=== PATIENT | male | born 1980 | race Two or more races ===

== ENCOUNTER 2017-04-14 10:51 | Inpatient (IN) | payer MEDICARE, OTHER ==
[~2017-04-14] VITALS: Ht 170.2 cm; Wt 78.0 kg
--- NOTE | 2017-04-14 11:08 | NUR ---
PT BIB PA C/O R HIP PAIN ON "THE SIDE" S/P GLF YESTERDAY. PT REPORTS HE WAS ABLE TO STAND WITH ASSISTANCE. NOTED WITH EXTERNAL ROTATION OF R LEG. SKIN WARM DIAPHORETIC. RESP EVEN UNLABORED. NO OTHER COMPLAINTS. IN ER BED 09 ON MONITOR.
[2017-04-14] MEDS ORDERED: ONDANSETRON 4 MG TAB.RAPDIS ONE (11:22)
[2017-04-14] MEDS ORDERED: MORPHINE SULFATE INJ 4 MG/ML DISP.SYRIN ONE ×2 (11:22→13:10)
[2017-04-14] MEDS ORDERED: MORPHINE SULFATE INJ 2 MG/ML DISP.SYRIN SQ ONE (11:30)
[2017-04-14] MEDS ORDERED: ONDANSETRON 4 MG TAB.RAPDIS SL ONE (11:30)
--- NOTE | 2017-04-14 12:53 | NUR ---
MD NOTIFIED THAT PT REMAINS TACHY, DIAPHORETIC, HYPERTENSIVE. AWAITING ORDERS.
[2017-04-14] MEDS ORDERED: IV NS 0.9% 1,000 ML IV PRN (12:57)
[2017-04-14] MEDS ORDERED: MORPHINE SULFATE INJ 2 MG/ML DISP.SYRIN IV ONE (13:00)
[2017-04-14] MEDS ORDERED: MAG HYDROX/AL HYDROX/SIMETH 30 ML UDC PO PRN (13:00)
[2017-04-14] MEDS ORDERED: ONDANSETRON HCL/PF - ER 4 MG/2 ML VIAL IV ONE (13:00)
[2017-04-14] MEDS ORDERED: ACETAMINOPHEN 325 MG TABLET PO PRN (13:00)
[2017-04-14] MEDS ORDERED: ONDANSETRON HCL/PF 4 MG/2 ML VIAL IVP PRN (13:00)
[2017-04-14] MEDS ORDERED: ZOLPIDEM TARTRATE 5 MG TABLET PO PRN (13:00)
[2017-04-14] MEDS ORDERED: MAGNESIUM HYDROXIDE 30 ML UDC PO PRN (13:00)
[2017-04-14] MEDS ORDERED: HYDROCODONE/APAP 5/325MG 1 EACH TABLET PO PRN (13:00)
[2017-04-14] MEDS ORDERED: ONDANSETRON HCL/PF 4 MG/2 ML VIAL ONE (13:10)
[2017-04-14] MEDS ORDERED: MAGN400T6 PO (13:31)
[2017-04-14] MEDS ORDERED: RISP0.5T20 PO (13:31)
[2017-04-14] MEDS ORDERED: ZONI100C6 PO (13:31)
[2017-04-14] MEDS ORDERED: FLUD0.1T PO (13:31)
[2017-04-14] MEDS ORDERED: GABA-534 PO (13:31)
[2017-04-14] MEDS ORDERED: OMEG1CAP55 PO (13:31)
[2017-04-14] MEDS ORDERED: LEVE750T4 PO (13:31)
[2017-04-14] MEDS ORDERED: PRAV40TA3 PO (13:31)
[2017-04-14] MEDS ORDERED: SERT25TA5 PO (13:31)
[2017-04-14] MEDS ORDERED: CALC500T3 PO (13:31)
[2017-04-14] MEDS ORDERED: BACL10TA PO (13:31)
--- NOTE | 2017-04-14 13:34 | NUR ---
PT APPEARS MUCH MORE COMFORTABLE. ALL NEEDS ATTENDED TO. KEPT NPO.
--- NOTE | 2017-04-14 13:40 | NUR ---
CALLED NURSING LIQUOR GALLERY OPERATOR FOR M/S BED
[2017-04-14] MEDS ORDERED: HYDROMORPHONE 1 MG/1 ML DISP.SYRIN ONE (14:13)
--- NOTE | 2017-04-14 14:22 | NUR ---
PT REPORTS SOME PAIN; NOTED WITH CONTINUED HTN AND TACHYCARDIA. MD ORTIZ NOTIFIED; ORDER RECEIVED AND ADMINISTERED.
[2017-04-14] MEDS ORDERED: HYDROMORPHONE 1 MG/1 ML DISP.SYRIN IV ONE (14:30)
--- NOTE | 2017-04-14 14:48 | NUR ---
REPORT GIVEN TO CARLOS OCHOA FOR ADMISSION
--- NOTE | 2017-04-14 15:01 | NUR ---
NOTIFIED DR ORTIZ OF HR AND BP WHICH REMAIN ELEVATED. PER DR ORTIZ, CONTACT DR LEYVA, ADMITTING MD. SPOKE WITH DR LEYVA ON PHONE, RECEIVED ORDER FOR METOPROLOL 25MG BID, FIRST DOSE NOW. VERIFIED PT CAN STILL GO TO [facility]. REPORT UPDATED TO CARLOS OCHOA.
--- NOTE | 2017-04-14 15:09 | NUR ---
SPOKE WITH PHARMACY REGARDING "MILK ALLERGY" AND LOPRESSOR. PT REPORTS HE DOES NOT HAVE AN ALLERGY BUT IS LACTOSE INTOLERANT AND GETS AN UPSET STOMACH. ENDORSED TO CARLOS OCHOA TO F/U WITH ADMITTING MD.
[2017-04-14] MEDS ORDERED: METOPROLOL TARTRATE 25 MG TABLET ONE (15:10)
[2017-04-14] MEDS: METOPROLOL TARTRATE 25 MG TABLET PO SCH ×2 (15:15→20:52)
[2017-04-14 15:30] VITALS: BP 137/42
--- NOTE | 2017-04-14 15:30 | NUR ---
[facility] campus recruiting internship notes Admitted a 37 years old male patient via gurney accompanied by ER nurse. Patient is alert and oriented x 4, verbally responsive and able to make needs known. Informed Dr. Johnson and made aware for admission orders and diet. IV intact and patent. Skin assessment done and skin is intact. No complaint of pain or discomfort at this time. Vital signs checked and recorded. On room air and tolerated well. Will continue to monitor accordingly.
--- NOTE | 2017-04-14 15:34 | NUR ---
PT TRANSPORTED TO [facility] IN STABLE CONDITION. NAD NOTED. DENIES PAIN. NO S/SX ALLERGIC OR ADVERSE REACTION NOTED.
[2017-04-14 17:59] LABS: BASOPHILS % (AUTO) 0.2 % (0.0-2.0); EOSINOPHILS # (AUTO) 0.1 /CMM (0.0-0.7); EOSINOPHILS % (AUTO) 0.6 % (0.0-6.0); HEMATOCRIT 51 % (39-51); HEMOGLOBIN 17.6 g/dL (13.5-17.5); LYMPHOCYTES % (AUTO) 9.7 % (20.0-44.0); MEAN CORPUSCULAR HEMOGLOBIN 31 PG (26.0-33.0); MEAN CORPUSCULAR HGB CONC 34 g/dl (31.0-36.0); MEAN CORPUSCULAR VOLUME 89 fL (80-96); MONOCYTES # (AUTO) 0.4 /CMM (0.1-1.30); MONOCYTES % (AUTO) 3.8 % (2.0-12.0); NEUTROPHILS # (AUTO) 8.5 /CMM (1.8-8.9); NEUTROPHILS % (AUTO) 85.7 % (43.0-81.0); PLATELET COUNT (AUTO) 142 /CMM (150-450); RED BLOOD CELL COUNT(AUTO) 5.75 MIL/uL (4.5-6.0)
[2017-04-14 18:19] LABS: CALCIUM, SERUM 8.9 mg/dL (8.5-10.1); CREATININE 1.6 mg/dL (0.6-1.3); PHOSPHORUS 2.4 mg/dL (2.5-4.9); POTASSIUM 3.4 mmol/L (3.5-5.1)
[2017-04-14] MEDS: ENOXAPARIN SODIUM 40 MG/0.4 ML DISP.SYRIN SQ SCH (18:51)
[2017-04-14] MEDS ORDERED: POTASSIUM CHLORIDE 20 MEQ TAB.PRT.SR PO SCH (19:00)
[2017-04-14] MEDS ORDERED: K PHOS NEUTRAL 250 MG TABLET PO ONE (19:00)
--- NOTE | 2017-04-14 19:13 | NUR ---
ms rn closing notes All needs provided, attended, and anticipated. Kept patient clean and comfortable in bed, call light with in patient reach, will continue to monitor accordingly. Endorsed to next shift RN to continue care.
--- NOTE | 2017-04-14 19:30 | NUR ---
MS RN NOTE RECEIVED PATIENT AWAKE AND ALERT IN BED. NO SOB OR RESPIRATORY DISTRESS. COMPLAINS OF 4/10 PAIN TO RIGHT HIP. RELAXATION TECHNIQUES PROVIDED. WILL ADMINISTER TYLENOL ORDERED. IV SITE INTACT WITH NO REDNESS OR INFILTRATION NOTED. BED LOCKED AND IN LOWEST POSITION. SIDE RAILS UP, CALL LIGHT WITHIN REACH. WILL CONTINUE TO MONITOR.
[2017-04-14 19:59] VITALS: BP 141/82
[2017-04-14] MEDS ORDERED: BACLOFEN (10 MG) 10 MG TABLET ONE (20:46)
[2017-04-14] MEDS: BACLOFEN (10 MG) 10 MG TABLET PO SCH (20:51)
--- NOTE | 2017-04-14 21:00 | NUR ---
MS RN NOTE OBTAINED CONSENT FOR [facility] HEMIARTHROPLASTY IN AM. CONSENT PLACED IN CHART.
[2017-04-14 22:00] VITALS: BP 141/82
[2017-04-15] MEDS: PANTOPRAZOLE 40 MG TABLET.DR PO SCH (06:24)
--- NOTE | 2017-04-15 06:42 | NUR ---
MS RN NOTE PATIENT STABLE. NO SOB OR RESPIRATORY DISTRESS. DENIES ANY PAIN AT THIS TIME. IV PULLED OUT. ATTEMPTED RE-INSERTION WITH NO SUCCESS. WILL LET DAY SHIFT KNOW. PATIENT HAS BEEN NPO FOR SURGERY SINCE MIDNIGHT. CONSENT IS SIGNED AND IN CHART. ALL NEEDS MET AND ATTENDED TO. WILL CONTINUE TO MONITOR.
--- NOTE | 2017-04-15 07:12 | NUR ---
ms rn initial notes Received patient in bed, awake, head of bed elevated, no SOB or distress noted. On room air and tolerated well. IV intact and patent. Alert and Oriented x 3, verbally responsive and able to make needs known. Kept patient clean and comfortable in bed, call light with in patient reach. On NPO at this time for scheduled surgery. Will continue to monitor accordingly.
[2017-04-15] MEDS ORDERED: IV SET PRIMARY PUMP SET 1 EA INFUS.SET MC ONE (07:15)
[2017-04-15 08:00] VITALS: BP 157/90
[2017-04-15 08:00] LABS: INR 1.05 (0.87-1.13); PROTHROMBIN TIME 11.3 SECS (9.5-12.7)
[2017-04-15 08:02] LABS: CALCIUM, SERUM 8.6 mg/dL (8.5-10.1); CREATININE 1.3 mg/dL (0.6-1.3); POTASSIUM 3.4 mmol/L (3.5-5.1)
[2017-04-15 08:03] VITALS: BP 156/95
[2017-04-15 08:09] LABS: CHOLESTEROL 234 mg/dL (<200); HDL CHOLESTEROL 48 mg/dL (40-60); LDL 136 mg/dL (0-99); TRIGLYCERIDES 208 mg/dL (30-150)
[2017-04-15] MEDS: MORPHINE SULFATE INJ 2 MG/ML DISP.SYRIN IV PRN (08:31)
[2017-04-15] MEDS: BACLOFEN (10 MG) 10 MG TABLET PO SCH ×4 (08:32→22:21)
[2017-04-15] MEDS: LEVETIRACETAM (250 MG) 250 MG TABLET PO SCH ×2 (08:32→22:03)
[2017-04-15] MEDS: FLUDROCORTISONE 0.1 MG TABLET PO SCH ×2 (08:32→16:21)
[2017-04-15] MEDS: GABAPENTIN 300 MG CAPSULE PO SCH ×3 (08:33→16:21)
[2017-04-15] MEDS: CALCIUM CARBONATE (1250) 500 MG TABLET PO SCH (08:33)
[2017-04-15] MEDS: METOPROLOL TARTRATE 25 MG TABLET PO SCH ×2 (08:33→22:02)
[2017-04-15] MEDS: MAGNESIUM OXIDE 400 MG TABLET PO SCH ×2 (08:33→16:21)
[2017-04-15] MEDS: SERTRALINE HCL 50 MG TABLET PO SCH (08:34)
[2017-04-15] MEDS: ZONISAMIDE 100 MG CAPSULE PO SCH (08:34)
--- NOTE | 2017-04-15 08:48 | NUR ---
ms rn notes Held all 9am due medications due to patient is NPO for scheduled surgery. Will continue to monitor accordingly.
[2017-04-15] MEDS ORDERED: BACITRACIN 50000 UNITS/VIAL ONE (10:05)
[2017-04-15] MEDS ORDERED: FENTANYL PF 100MCG/2ML AMPUL ONE (11:16)
[2017-04-15] MEDS ORDERED: ROCURONIUM BROMIDE 50 MG/5 ML ONE ×2 (11:16)
[2017-04-15] MEDS ORDERED: MIDAZOLAM HCL 2 MG/2ML VIAL ONE (11:16)
--- NOTE | 2017-04-15 11:19 | NUR ---
ms rn notes patient picked up by OR nurse for scheduled procedure.
[2017-04-15] MEDS ORDERED: TRANEXAMIC ACID 3,000 MG in SODIUM CHLORIDE IRRIG SOLUTION 70 ML IR ONE (12:30)
[2017-04-15] MEDS ORDERED: BUPIVACAINE 0.5 % PF 150 MG/30 ML VIAL ONE (12:40)
[2017-04-15] MEDS ORDERED: CEFAZOLIN 2 GM in IV D5W 50 ML IV SCH (13:30)
[2017-04-15] MEDS ORDERED: HYDROMORPHONE 1 MG/1 ML DISP.SYRIN IV PRN (13:30)
[2017-04-15] MEDS ORDERED: oxyCODONE/APAP (5/325 MG) 1 UDTAB TABLET PO PRN (13:30)
[2017-04-15 13:45] VITALS: BP 157/101
--- NOTE | 2017-04-15 13:47 | NUR ---
ms rn notes Patient came back from surgery in stable condition. Vital signs checked and recorded. All orders faxed to the pharmacy by OR nurse. Diet as ordered. Will continue to monitor accordingly.
[2017-04-15] MEDS: Potassium Chloride 20 MEQ in IV NS 0.9% 1,000 ML IV PRN (13:55)
[2017-04-15 14:00] VITALS: BP 145/97
[2017-04-15 16:00] VITALS: BP 129/82
[2017-04-15] MEDS ORDERED: OMEGA ACID ETHYL ESTERS PO SCH (17:00)
--- NOTE | 2017-04-15 19:22 | NUR ---
ms rn closing notes All needs provided, attended, and anticipated. kept patient clean and comfortable in bed, call light with in patient reach, will continue to monitor accordingly. Endorsed to next shift RN to continue care.
[2017-04-15] MEDS: CEFAZOLIN 2 GM in IV D5W 50 ML IV SCH (19:57)
[2017-04-15 20:00] VITALS: BP_SYST 110; BP_SYST 139; BP_DIAS 74; BP_DIAS 77
[2017-04-15] MEDS: risperiDONE 0.25 MG TABLET PO SCH (22:02)
[2017-04-15] MEDS: ATORVASTATIN 10 MG TABLET PO SCH (22:02)
[2017-04-15] MEDS: ENOXAPARIN SODIUM 40 MG/0.4 ML DISP.SYRIN SQ SCH (22:15)
[2017-04-16] MEDS: CEFAZOLIN 2 GM in IV D5W 50 ML IV SCH (04:30)
--- NOTE | 2017-04-16 07:00 | NUR ---
MS/RN NOTES PATIENT IN BED, AWAKE, ALERT, VERBALIZE NEEDS. NO S/S OF SOB OR DISTRESS. WILL ENDORSE TO AM RN REGARDING MERCEDEZ.
--- NOTE | 2017-04-16 07:45 | NUR ---
MS RN OPENING RECEIVED PATIENT A/OX3 DENIES PAIN WITH NO MOVEMENT, NO SOB, DIFFICULTY BREATHING. PATIENT STATES NO NEEDS AT THIS TIME. WITH ADDUCTOR PILLOW IN BETWEEN LEGS. PATIENT IVF RUNNING ORDERED, CALL LIGHT IN REACH, BED LOWERED AND LOCKED, RAILS UPX3 FOR SAFETY AND WILL ROUND Q2H OR LESS PER NEEDS. ALL NEEDS MET. PATIENT IN POSITION OF COMFORT. WILL TURN Q2H AND OFFLOAD HEELS AND ELBOWS THROUGHOUT DAY.
[2017-04-16 08:00] VITALS: BP 133/81
[2017-04-16 08:22] LABS: BASOPHILS % (AUTO) 0.1 % (0.0-2.0); EOSINOPHILS # (AUTO) 0.1 /CMM (0.0-0.7); EOSINOPHILS % (AUTO) 0.8 % (0.0-6.0); HEMATOCRIT 42 % (39-51); HEMOGLOBIN 14.6 g/dL (13.5-17.5); LYMPHOCYTES # (AUTO) 0.9 /CMM (0.8-4.8); LYMPHOCYTES % (AUTO) 10.3 % (20.0-44.0); MEAN CORPUSCULAR HEMOGLOBIN 31 PG (26.0-33.0); MEAN CORPUSCULAR HGB CONC 35 g/dl (31.0-36.0); MEAN CORPUSCULAR VOLUME 89 fL (80-96); MONOCYTES # (AUTO) 0.5 /CMM (0.1-1.30); NEUTROPHILS # (AUTO) 7.1 /CMM (1.8-8.9); NEUTROPHILS % (AUTO) 82.8 % (43.0-81.0); PLATELET COUNT (AUTO) 130 /CMM (150-450); WHITE BLOOD COUNT (AUTO) 8.5 K/uL (4.3-11.0)
[2017-04-16] MEDS: PANTOPRAZOLE 40 MG TABLET.DR PO SCH (08:36)
[2017-04-16] MEDS: MAGNESIUM OXIDE 400 MG TABLET PO SCH ×2 (08:36→16:10)
[2017-04-16] MEDS: GABAPENTIN 300 MG CAPSULE PO SCH ×3 (08:36→16:10)
[2017-04-16] MEDS: CALCIUM CARBONATE (1250) 500 MG TABLET PO SCH (08:37)
[2017-04-16] MEDS: SERTRALINE HCL 50 MG TABLET PO SCH (08:37)
[2017-04-16] MEDS: FLUDROCORTISONE 0.1 MG TABLET PO SCH ×2 (08:37→16:10)
[2017-04-16] MEDS: LEVETIRACETAM (250 MG) 250 MG TABLET PO SCH ×2 (08:37→21:39)
[2017-04-16] MEDS: ZONISAMIDE 100 MG CAPSULE PO SCH (08:39)
[2017-04-16] MEDS: Z GUARD REMEDY 2 OZ OINT TP PRN (08:42)
[2017-04-16] MEDS: BACLOFEN (10 MG) 10 MG TABLET PO SCH ×4 (08:42→21:39)
[2017-04-16 08:45] LABS: ALBUMIN 3.3 g/dL (3.4-5.0); BILIRUBIN,TOTAL 0.8 mg/dL (0.2-1.0); CREATININE 1.4 mg/dL (0.6-1.3); MAGNESIUM 1.6 mg/dL (1.8-2.4); PHOSPHORUS 1.8 mg/dL (2.5-4.9); POTASSIUM 3.8 mmol/L (3.5-5.1); TOTAL PROTEIN, SERUM 7.2 g/dL (6.4-8.2)
[2017-04-16] MEDS: METOPROLOL TARTRATE 25 MG TABLET PO SCH ×2 (08:45→21:39)
--- NOTE | 2017-04-16 09:55 | NUR ---
MS RN NOTES PHYSICAL THERAPY TRYING TO WORK WITH PATIENT. NO PAIN WITHOUT MOVEMENT AND 10/10 PAIN WITH MOVEMENT. PRN MEDICATIONS FOR PATIENT FOR PHYSICAL THERAPY
--- NOTE | 2017-04-16 11:47 | NUR ---
MS RN NOTES NIGHT RN STATED SHE GAVE ANCEF AT 430 THIS AM FOR PATIENT
[2017-04-16] MEDS: Potassium Chloride 20 MEQ in IV NS 0.9% 1,000 ML IV PRN (13:55)
[2017-04-16] MEDS ORDERED: K PHOS NEUTRAL 250 MG TABLET PO ONE (14:00)
[2017-04-16] MEDS: MORPHINE SULFATE INJ 2 MG/ML DISP.SYRIN IV PRN (15:41)
[2017-04-16 16:00] VITALS: BP 118/82
--- NOTE | 2017-04-16 19:03 | NUR ---
MS RN CLOSING PATIENT STABLE PAIN CONTROLLED WITH PRN MEDICATIONS AND NON PHARM MEASURES. ALL DUE MEDS GIVEN AND ALL NEEDS MET. PATIENT ASSISTED WITH TURNING AND OFFLOADING Q2H. PATIENT STATES NO NEEDS AT THIS TIME. CALL LIGHT IN REACH, BED LOWERED AND LOCKED, RAILS UPX3 FOR SAFETY WITH BED ALARM ON. WILL ENDORSE TO CYRUS OCHOA AT THIS TIME FOR MERCEDEZ
--- NOTE | 2017-04-16 19:20 | NUR ---
MS/RN OPENING NOTES PT AWAKE, SITTING UP IN BED. ON ROOM AIR, NO COMPLAINTS OF SOB OR DISTRESS AT THIS TIME. NO COMPLAINTS OF PAIN. ADDUCTOR PILLOW IN PLACE. IV TO RFA PATENT AND INTACT RUNNING IVF ORDERED. BED IN LOW/LOCKED POSITION WITH CALL LIGHT IN REACH. BED RAILS UPX2. WILL CONTINUE TO MONITOR
[2017-04-16 20:00] VITALS: BP 133/88
--- NOTE | 2017-04-16 20:34 | NUR ---
MS/RN NOTES PT NOTED TO HAVE TEMPERATURE OF 99.8F AND NOTES PAIN TO BE 5/10 TO RIGHT HIP. ADMINISTERED PRN NORCO 5-325 AND COOLING MEASURES IMPLEMENTED. WILL CONTINUE TO MONITOR
[2017-04-16 21:30] VITALS: BP 136/99
[2017-04-16] MEDS: ATORVASTATIN 10 MG TABLET PO SCH (21:40)
[2017-04-16] MEDS: risperiDONE 0.25 MG TABLET PO SCH (21:40)
[2017-04-16] MEDS: ENOXAPARIN SODIUM 40 MG/0.4 ML DISP.SYRIN SQ SCH (21:43)
--- NOTE | 2017-04-16 21:59 | NUR ---
MS/RN NOTES RECHECKED TEMPERATURE=99.1F. CONTINUED COOLING MEASURES. BP ZGX=018/99, VV=141. WILL CONTINUE TO MONITOR
--- NOTE | 2017-04-17 01:14 | NUR ---
MS/RN NOTES PT ASLEEP, BREATHING EVEN AND UNLABORED. NO S/S OF DISTRESS NOTED. WILL CONTINUE TO MONITOR
[2017-04-17] MEDS: Potassium Chloride 20 MEQ in IV NS 0.9% 1,000 ML IV PRN (05:44)
--- NOTE | 2017-04-17 06:31 | NUR ---
MS/RN CLOSING NOTES PT ASLEEP, EASILY AROUSABLE TO NAME, RESTING COMFORTABLY IN BED. A/OX4, ON ROOM AIR, BREATHING EVEN AND UNLABORED. NO COMPLAINTS OF PAIN AT THIS TIME. NO S/S OF DISTRESS. ABDUCTOR PILLOW REMAINS IN PLACE, TURNED/REPOSITIONED Q2H. MADE PT COMFORTABLE THROUGHOUT SHIFT. LATEST TEMPERATURE=98.5F. IV TO RFA PATENT AND INTACT RUNNING IVF ORDERED. NO S/S OF INFILTRATION NOTED. DRESSING TO RIGHT HIP INTACT. BED REMAINS IN LOW/LOCKED POSITION WITH CALL LIGHT IN REACH. BED RAILS UPX2. WILL ENDORSE TO AM SHIFT MERCEDEZ.
--- NOTE | 2017-04-17 07:13 | NUR ---
MS RN OPENING RECEIVED PATIENT A/OX3 DENIES PAIN WITH OUT MOVEMENT AND STATES NO PAIN MEDICATION NEEDED. NO SOB, DIFFICULTY BREATHING. PATIENT STATES NO NEEDS AT THIS TIME. WITH ADDUCTOR PILLOW IN BETWEEN LEGS. PATIENT IVF RUNNING ORDERED, CALL LIGHT IN REACH, BED LOWERED AND LOCKED, RAILS UPX3 FOR SAFETY AND WILL ROUND Q2H OR LESS PER NEEDS. ALL NEEDS MET. PATIENT IN POSITION OF COMFORT. WILL TURN Q2H AND OFFLOAD HEELS AND ELBOWS THROUGHOUT DAY. SPECIALTY MESSAGE MATTRESS ORDERED FOR PATIENT
[2017-04-17 07:14] LABS: BASOPHILS % (AUTO) 0.3 % (0.0-2.0); EOSINOPHILS # (AUTO) 0.2 /CMM (0.0-0.7); EOSINOPHILS % (AUTO) 2.4 % (0.0-6.0); HEMATOCRIT 34 % (39-51); LYMPHOCYTES # (AUTO) 1.1 /CMM (0.8-4.8); LYMPHOCYTES % (AUTO) 16.2 % (20.0-44.0); MEAN CORPUSCULAR HEMOGLOBIN 31 PG (26.0-33.0); MEAN CORPUSCULAR HGB CONC 35 g/dl (31.0-36.0); MEAN CORPUSCULAR VOLUME 89 fL (80-96); MONOCYTES # (AUTO) 0.5 /CMM (0.1-1.30); NEUTROPHILS % (AUTO) 73.1 % (43.0-81.0); PLATELET COUNT (AUTO) 135 /CMM (150-450); RDW COEFFICIENT OF VARIATION 12.8 (11.5-15.0); RED BLOOD CELL COUNT(AUTO) 3.86 MIL/uL (4.5-6.0); WHITE BLOOD COUNT (AUTO) 6.8 K/uL (4.3-11.0)
[2017-04-17 07:28] LABS: CALCIUM, SERUM 7.8 mg/dL (8.5-10.1); CREATININE 1.2 mg/dL (0.6-1.3); PHOSPHORUS 2.2 mg/dL (2.5-4.9); POTASSIUM 3.6 mmol/L (3.5-5.1)
[2017-04-17 08:00] VITALS: BP 116/60
[2017-04-17] MEDS: MAGNESIUM OXIDE 400 MG TABLET PO SCH ×2 (08:20→16:07)
[2017-04-17] MEDS: GABAPENTIN 300 MG CAPSULE PO SCH ×3 (08:20→16:07)
[2017-04-17] MEDS: CALCIUM CARBONATE (1250) 500 MG TABLET PO SCH (08:20)
[2017-04-17] MEDS: LEVETIRACETAM (250 MG) 250 MG TABLET PO SCH (08:20)
[2017-04-17] MEDS: FLUDROCORTISONE 0.1 MG TABLET PO SCH ×2 (08:20→16:07)
[2017-04-17] MEDS: PANTOPRAZOLE 40 MG TABLET.DR PO SCH (08:20)
[2017-04-17] MEDS: SERTRALINE HCL 50 MG TABLET PO SCH (08:21)
[2017-04-17] MEDS: ZONISAMIDE 100 MG CAPSULE PO SCH (08:21)
[2017-04-17 08:22] VITALS: BP 120/66
[2017-04-17] MEDS: Z GUARD REMEDY 2 OZ OINT TP PRN ×2 (08:22→12:02)
[2017-04-17] MEDS: METOPROLOL TARTRATE 25 MG TABLET PO SCH (08:22)
[2017-04-17] MEDS: BACLOFEN (10 MG) 10 MG TABLET PO SCH ×3 (08:22→16:07)
[2017-04-17] MEDS: MORPHINE SULFATE INJ 2 MG/ML DISP.SYRIN IV PRN ×2 (09:16→14:28)
[2017-04-17] MEDS ORDERED: K PHOS NEUTRAL 250 MG TABLET PO ONE (13:30)
--- NOTE | 2017-04-17 14:48 | NUR ---
MS RN NOTES REPORT CALLED TO STERLING OCHOA AT [facility]
--- NOTE | 2017-04-17 16:47 | NUR ---
MS BELT DRESSER PATIENT EDUCATED ON DC MATERIAL AND STATED UNDERSTANDING. PATIENT IV REMOVED PRESSURE AND DRESSING APPLIED NO BLEEDING. ALL BELONGINGS ACCOUNTED FOR AND SIGNED. PATIENT ASSISTED TO [facility] FOR DC AND CARE TRANSFERED TO EMT. PATIENT LEFT FACILITY IN STABLE CONDITION NO COMPLICATIONS.
== END 2017-04-17 16:55 | DRG 469 ==
LOC: ER 10:54 → MED 14:48
PROVIDERS: ADMIT Internal Medicine; ATTEND Legal Medicine
PROC: 0SRR0JZ Replacement of Right Hip Joint, Femoral Surface with Synthetic Substitute, Open Approach (ICD-10-PCS; principal; 2017-04-15 12:09)
DX: S72.041A Displaced fracture of base of neck of right femur, initial encounter for closed fracture (principal); G93.41 Metabolic encephalopathy; R53.2 Functional quadriplegia; D68.59 Other primary thrombophilia; I69.854 Hemiplegia and hemiparesis following other cerebrovascular disease affecting left non-dominant side; W06.XXXA Fall from bed, initial encounter; Y92.003 Bedroom of unspecified non-institutional (private) residence as the place of occurrence of the external cause; E78.5 Hyperlipidemia, unspecified; Z96.642 Presence of left artificial hip joint; Z98.2 Presence of cerebrospinal fluid drainage device; F32.9 Major depressive disorder, single episode, unspecified; E87.6 Hypokalemia; G40.909 Epilepsy, unspecified, not intractable, without status epilepticus; I10 Essential (primary) hypertension
CPT/HCPCS: 36415; 71010-TC; 72220-TC; 73501; 73510-TC; 80048-TC; 80053-TC; 80061-TC; 83735-TC; 84100-TC; 85025-TC; 85610-TC; 85730-TC; 87081-TC; 88305-TC; 88311-TC; 93307-TC; 97001-TC; 97110-TC; 97112-TC; 97116-TC; 97530-TC; A4217; A4606; A6209; A6402; J0690; J1100; J1170; J1650; J2250; J2270; J2405; J2704; J2710; J3010; J3480; J3490; J7030; J7060; Q0162; Z7610

== ENCOUNTER 2022-03-22 03:08 | Emergency (ER) | payer MEDICARE, OTHER ==
[~2022-03-22] VITALS: Ht 170.2 cm; Wt 81.6 kg
[~2022-03-22 03:08] MED LIST: BACL10TA PO; CALC500T88 PO; FLUD0.1T PO; GABA-534 PO; LEVE750T4 PO; MAGN400T8 PO; OMEG1CAP55 PO; PRAV40TA3 PO; RISP0.5T65 PO; SERT25TA5 PO; ZONI100C31 PO
--- NOTE | 2022-03-22 03:22 | NUR ---
ELVI FROM [facility] AND CARE. AAOX 4. NOT IN RESP DISTRESS. BROUGHT IN FOR HEMATURIA AND DYSURIA X THIS EVENING. PT IS AFEBRILE. AWAITING MD FOR EVAL
--- NOTE | 2022-03-22 04:00 | NUR ---
URINE COLLECTED AND SENT TO LAB. NOTED HEMATURIA
[2022-03-22 04:15] LABS: BILIRUBIN,URINE MODERATE (NEGATIVE); COLOR,URINE RED (YELLOW); LEUKOCYTE ESTERASE ,URINE MODERATE (NEGATIVE); NITRITE, URINE POSITIVE (NEGATIVE); PH,URINE 6.5 (5.0-8.0); PROTEIN,URINE 100 mg/dl (NEGATIVE); UGLUCOSE NEGATIVE (NEGATIVE)
[2022-03-22] MEDS ORDERED: CIPR500T5 PO (04:51)
[2022-03-22 05:00] VITALS: BP 130/70
[2022-03-22] MEDS ORDERED: CIPROFLOXACIN HCL 500 MG TABLET PO ONE (05:00)
--- NOTE | 2022-03-22 05:16 | NUR ---
CALLED DOMINGA COREA AT [facility] MULTIPLE TIMES TO GIVE REPORT. UNTIL FINALLY SOMEONE PICKED UP THE PHONE SCREAMING THAT SHE IS BUSY, INFORMED HER THAT HER PATIENT IS GETTING DISCHARGE AND WILL GO BACK TO THE FACILITY. [facility] ETA: 20-30 MIN
--- NOTE | 2022-03-22 05:44 | NUR ---
REPORT GIVEN TO EMS AT BEDSIDE.
[2022-03-22 07:51] LABS: RBC,URINE TOO NUMEROUS TO COUN /HPF (0-2)
[2022-03-22 07:52] LABS: BACTERIA,URINE None seen /HPF (None Seen); SQUAMOUS EPITHELIAL CELL,UR None Seen /HPF (None Seen)
== END 2022-03-22 05:44 ==
LOC: ER 03:13
DX: N39.0 Urinary tract infection, site not specified (principal); I10 Essential (primary) hypertension; Z86.69 Personal history of other diseases of the nervous system and sense organs; Z96.643 Presence of artificial hip joint, bilateral; Z91.011 Allergy to milk products; Z88.8 Allergy status to other drugs, medicaments and biological substances; Z79.899 Other long term (current) drug therapy
CPT/HCPCS: 81001; 87086-TC

== ENCOUNTER 2022-08-07 14:19 | Emergency (ER) | payer MEDICARE, OTHER ==
[~2022-08-07] VITALS: Ht 170.2 cm; Wt 81.6 kg
[~2022-08-07 14:19] MED LIST changes: +CIPR500T5 PO
--- NOTE | 2022-08-07 14:55 | NUR ---
patient came in to the er c/o sob, 97% on room air, from [facility]. Connected to the monitor and pulse ox. kept comfortable, will continue to monitor accordingly.
[2022-08-07] MEDS ORDERED: predniSONE 20 MG TABLET ONE (14:59)
[2022-08-07] MEDS ORDERED: IPRATROPIUM NEB FS 0.5 MG/2.5 ML AMPUL.NEB NEB ONE (15:00)
[2022-08-07] MEDS ORDERED: predniSONE 20 MG TABLET PO ONE (15:00)
[2022-08-07] MEDS ORDERED: ALBUTEROL FS 2.5 MG/3 ML VIAL.NEB NEB ONE (15:00)
[2022-08-07] MEDS ORDERED: ALBUTEROL FS 2.5 MG/3 ML VIAL.NEB ONE (15:13)
[2022-08-07] MEDS ORDERED: IPRATROPIUM NEB FS 0.5 MG/2.5 ML AMPUL.NEB ONE (15:13)
[2022-08-07] MEDS ORDERED: IV NS 0.9% 1,000 ML IV ONE (16:00)
[2022-08-07] MEDS ORDERED: PRED50TA PO (16:26)
[2022-08-07] MEDS ORDERED: ALBU18HF2 INH (16:26)
--- NOTE | 2022-08-07 16:34 | NUR ---
[facility] CALLED FOR TRANSPORT ETA [id number]
[2022-08-07 17:24] VITALS: BP 166/99
--- NOTE | 2022-08-07 17:24 | NUR ---
patient picked up by private ambulance in no distress going back to snf.
== END 2022-08-07 17:24 ==
LOC: ER 15:06
DX: R06.02 Shortness of breath (principal); Z86.69 Personal history of other diseases of the nervous system and sense organs; Z96.643 Presence of artificial hip joint, bilateral; Z91.011 Allergy to milk products; Z88.8 Allergy status to other drugs, medicaments and biological substances; Z79.899 Other long term (current) drug therapy
CPT/HCPCS: 99285; 71045; 93005; 94640; J7512